=== PATIENT | female | born 2000 | race African-American/Black ===

== ENCOUNTER 2022-02-04 04:25 | Emergency (ER) | payer MEDICAID ==
[~2022-02-04] VITALS: Ht 165.1 cm; Wt 70.0 kg
[2022-02-04] MEDS ORDERED: IPRATROPIUM BROMIDE (0.02%) 0.5MG/2.5ML NEB HHN STA (05:32)
[2022-02-04] MEDS ORDERED: PREDNISONE 20MG TABLET PO STA (05:32)
[2022-02-04] MEDS ORDERED: ALBUTEROL (0.083%) 2.5MG/3ML NEB HHN STA (05:32)
[2022-02-04] MEDS ORDERED: ALBU6.7H3 INH (06:57)
[2022-02-04] MEDS ORDERED: P50 PO (06:57)
[2022-02-04 07:09] VITALS: BP 124/78
== END 2022-02-04 07:15 | disposition home or self-care (01) ==
LOC: ER 04:25
DX: J45.901 Unspecified asthma with (acute) exacerbation (principal); Z91.041 Radiographic dye allergy status; Z88.2 Allergy status to sulfonamides
CPT/HCPCS: 81025; 94640; 99283; J7512; Z7610